=== PATIENT | male | born 2005 | race Caucasian/White ===

== ENCOUNTER 2025-03-23 14:52 | Emergency (ER) | payer SELFPAY ==
[~2025-03-23] VITALS: Ht 177.8 cm; Wt 90.3 kg
--- NOTE | 2025-03-23 16:57 | RADIOLOGY REPORT ---
CLINICAL INDICATION: lower neck upper thoracic pain right side TECHNIQUE: 4 radiographic views of the thoracic spine were obtained. Comparison: None FINDINGS/IMPRESSION: 12 rib-bearing thoracic type vertebrae. Mild straightening of the thoracic kyphosis. The vertebral b augustine heights are maintained. No evidence of acute traumatic fractures or spondylolisthesis.
--- NOTE | 2025-03-23 16:58 | RADIOLOGY REPORT ---
[facility] INDICATION: lower neck upper thoracic pain right side TECHNICAL DATA: The following views were obtained of the cervical spine: Frontal, lateral, open mout h. COMPARISON: None FINDINGS: C1-7 are visualized on the lateral view for evaluation of alignment. Cervical curvature is normal. Th ere is no spondylolisthesis. Vertebral body heights are maintained. Disk heights are normal. The face t joints appear normal. The dens and predental space demonstrate no abnormality. The C1-C2 articulati on appears normal. Prevertebral soft tissues are within normal limits. IMPRESSION: No acute fracture or dislocation of the cervical spine.
--- NOTE | 2025-03-23 17:04 | Physician Documentation ---
History of Present Illness ~ Chief Complaint: Chest Wall Pain Stated Complaint: CHEST WALL PAIN Time Seen by MD: 15:31 OK to notify your PCP?: Yes Source: patient, family Mode of Arrival: POV Exam Limitations: no limitations HPI 20-year-old male with chief complaint pain in his chest and his back which has been ongoing for about a week now. He states the pain occurs when he weight lifts which he has been doing heavily for about three years. No specific injury but states the pain has been getting worse each day which is why he decided to come to the ER. He took Motrin 400 mg without any relief. He states the pain is not worse when he puts pressure on his chest wall. He states today when he woke up from a nap he rates his arm overhead and felt a pop and had very severe pain and not made him concerned. He did not notice any deformities of his biceps muscle or any other muscles. He denies any supplements piece your other than vitamins. He states he has not had any dietary changes or changes in his workout regimen. He denies any cramping, rashes, pain in his lower extremities. Medication Reconciliation Allergies: Coded Allergies: No Known Allergies (Unverified , 03/23/25) Past Medical History Past Medical History: No Pertinent History Alcohol Use: None Drug Use: none Lives In: Home Review of Systems All Other Systems at this time: Reviewed and Negative Physical Exam Physical Exam Vital Signs: Temperature: 98.0, Source: Temporal, Heart Rate: 102, Respiratory Rate: 16, BP: 144/76, Pulse Oximetry: 98, Weight: 90.300 Oxygen Flow Rate: 0 Physical Exam GENERAL: Alert, no acute distress. HEENT: NCAT, EOMI, PERRL, normal oropharynx, moist oral mucosa. NECK: Supple, trachea midline. CARDIAC: Regular rate and rhythm, no murmurs, rubs, or gallops. Equal distal pulses. No lower extremity edema, cap refill less than 2 seconds. RESPIRATORY: Equal breath sounds, clear to auscultation bilaterally, no respiratory distress. GASTROINTESTINAL: Normoactive bowel sounds x4 quadrants, non distended, soft, nontender, No guarding or rebound. MUSCULOSKELETAL: Normal range of motion, nontender, no swelling. Normal gait. Spine: No tenderness over spinous processes of cervical through lumbar spine but tenderness over the paraspinal muscles of the lower cervical and upper thoracic spine on the right side, active range motion of upper extremities is full however patient reports pain when he reaches his right arm overhead and states the pain is in his right pectoralis muscle and underneath his right axilla. No reproducible tenderness over the right or left shoulder joint. No tenderness over the sternum. NEUROLOGICAL: Awake, alert, and oriented x 3. SKIN: Warm/dry, no pallor, no rash. PSYCH: Alert and appropriate. Affect congruent with mood. Speech is clear. Good eye contact. Procedures Procedures See disposition section of the note for the imaging study results I reviewed the imaging studies and agree with Radiology interpretation Progress Results/Orders Results/Orders Orders - ANAYELI [facility] (03/23/25 16:23) [facility] (03/23/25 16:23) Completed Orders - ANAYELI [facility] (03/23/25 16:23) [facility] (03/23/25 16:23) Vital Signs 03/23/25 03/23/25 14:57 17:18 Temp 98.0 98.0 Pulse 102 77 Resp 16 16 B/P (MAP) 144/76 141/93 Pulse Ox 98 99 O2 Flow Rate 0 Medical Decision Making Differential Dx:Considerations: Include: AAA, Aortic dissection, Appendicitis, Bowel obstruction, Cholelithiasis, Cholangitis, DJD, Fracture, Hepatitis, HNP, Musculoskeletal pain, Pancreatitis, Pyelonephritis, Renal infarction, Strain, Urinary obstruction, Urolithiasis, Urinary tract infection, Other Departure Time of Disposition: 17:04 Disposition: 01 HOME / SELF CARE / HOMELESS Impression: Primary Impression: Muscle pain Additional Impression: Pain of thoracic facet joint Condition: Stable Discharge Instructions: General Discharge Instructions Additional Instructions: XRAYS NORMAL OTHER THAN SOME MILD STRAIGHTENING OF THE THORACIC SPINE WHICH CAN OCCUR FROM MUSCLE SPASM I RECOMMEND YOU TAKE NAPROXEN 500MG TWICE DAILY FOR THE NEXT 2WEEKS AND REDUCE THE WEIGHT YOU ARE LIFTING CONSIDERING YOUR SYMPTOMS HAVE CONTINUED TO WORSENED YOU HAVE CONTINUED TO LIFT HEAVY WEIGHT. THERE IS NO EVIDENCE FOR COSTOCHONDRITIS PAIN IS NOT REPRODUCIBLE WITH PRESSURE TO CHEST WALL. THERE IS NO EVIDENCE FOR PRIMARY SHOULDER INJURY THIS WOULD NOT RESULT IN PAIN WITH YOU LIFT YOUR LEFT SHOULDER AND YOU REPORT PAIN THAT OCCURS WHEN YOU REACH YOUR LEFT AND RIGHT SHOULDER OVERHEAD. THE ONLY THING THAT MAKES SENSE WOULD BE SPINE ETIOLOGY AND YOU DID HAVE POINT TENDERNESS TO THE RIGHT OF YOUR UPPER THORACIC SPINE OVER THE THORACIC PARASPINAL MUSCLES. RETURN TO ER IF ANY OTHER CONCERNING SYMPTOMS OTHERWISE F/U WITH PCP. THORACIC SPINE XRAY: 12 rib-bearing thoracic type vertebrae. Mild straightening of the thoracic kyphosis. The vertebral body heights are maintained. No evidence of acute traumatic fractures or spondylolisthesis. CERVICAL XRAY: C1-7 are visualized on the lateral view for evaluation of alignment. Cervical curvature is normal. There is no spondylolisthesis. Vertebral body heights are maintained. Disk heights are normal. The facet joints appear normal. The dens and predental space demonstrate no abnormality. The C1-C2 articulation appears normal. Prevertebral soft tissues are within normal limits. IMPRESSION: No acute fracture or dislocation of the cervical spine. Referrals: NO PRIMARY CARE PROVIDER (PCP) Education Educated: Patient, Family Educated regarding: diagnosis, treatment, need for follow up Signature Scribe Signature: x Attestation: ANAYELI Menjivar Mar 23, 2025 17:04
[2025-03-23 17:18] VITALS: BP 141/93; PULSE 77; RESP 16; TEMP 98; O2SAT 99
== END 2025-03-23 17:19 | disposition home or self-care (01) ==
LOC: ER 14:53
DX: M79.10 Myalgia, unspecified site (principal); M54.6 Pain in thoracic spine
CPT/HCPCS: 72040; 72070; 99284